=== PATIENT | male | born 1975 | race Caucasian/White ===

== ENCOUNTER 2023-08-18 09:54 | Outpatient (REF) | payer OTHER, SELFPAY ==
[2023-08-18 11:53] LABS: Erythrocyte Sedimentation Rate 7 MM/HR (0-15)
[2023-08-18 12:08] LABS: Syphilis Screen Nonreactive (Nonreactive)
[2023-08-18 12:13] LABS: Alanine Aminotransferase 15 U/L (0-40); Albumin Level 4.4 g/dL (3.5-5.0); Alkaline Phosphatase 75 U/L (39-117); Anion Gap 14 (12-20); Aspartate Amino Transferase 13 U/L (5-37); Bilirubin Direct 0.1 mg/dL (0.0-0.5); Bilirubin Total 0.3 mg/dL (0.0-1.0); Blood Urea Nitrogen 19 mg/dL (9-16); Carbon Dioxide 26 mmol/L (22-29); Chloride 106 mmol/L (96-108); Estimated Glomerular Filt Rate > 60; Glucose Random 119 mg/dL (60-115); Potassium 4.5 mmol/L (3.3-5.1); Sodium 141 mmol/L (135-145); Thyroid Stimulating Hormone 3.52 uIU/mL (0.32-4.0); Total Protein 7.4 g/dL (6.5-8.0)
[2023-08-18 12:17] LABS: Vitamin B12 782 pg/mL (200-900)
[2023-08-19 09:13] LABS: Lyme Abs Screen <0.90 index
== END 2023-08-18 09:55 | disposition home or self-care (01) ==
LOC: HO.LAB 09:54
PROVIDERS: Visit Provider Psychiatry & Neurology Neurology
DX: G93.49 Other encephalopathy (principal); E66.01 Morbid (severe) obesity due to excess calories
CPT/HCPCS: 36415; 80048; 80076; 82607; 84443; 85652; 86617; 86618; 86780